=== PATIENT | male | born 1970 | race Caucasian/White ===

== ENCOUNTER 2021-07-04 11:49 | Emergency (ER) | payer BC ==
[~2021-07-04] VITALS: Ht 185.4 cm; Wt 90.9 kg
[~2021-07-04 11:49] MED LIST: ADVIL200 MG PO; ALLEGRA 180MG180 MG PO; LEXAPRO 5MG5 MG PO; LEXAPRO5 MG PO; MULTIPLE VITAMI1 CAP PO; NORCO 325 MG-51 TAB PO; PRIL40 PO; SUDAFED30 MG PO; VALIUM 5MG T5 MG/TAB PO; VALIUM5 MG PO; ZANTAC 150MG T150 MG PO; ZOLOFT 100MG100 MG PO
[2021-07-04 12:12] VITALS: TEMP 97.8
[2021-07-04 12:34] LABS: BASO # 0.1 K/mm3 (0.0-0.2); BASO % 0.5 % (0.0-2.0); EOS # 0.1 K/mm3 (0.0-0.7); EOS % 0.6 % (0.0-4.0); GRAN # 8.3 K/mm3 (1.4-6.5); GRAN % 77.3 % (42.2-75.2); HEMATOCRIT 47.8 % (42.0-52.0); LYMPH # 1.6 K/mm3 (1.2-3.4); MEAN CELL VOLUME 86 fl (80.0-100.0); MEAN CORPUSCULAR HEMOGLOBIN 31 pg (27-31); MEAN CORPUSCULAR HGB CONC 36 g/dl (33.0-37.0); MEAN PLATELET VOLUME 10.8 fl (7.4-10.4); MONO # 0.7 K/mm3 (0.1-0.6); MONO % 6.2 % (1.7-9.3); PLATELET COUNT 216 K/mm3 (130-400); RED BLOOD COUNT 5.58 M/mm3 (4.20-5.60); REDCELL DISTRIBUTION WIDTH-CV 12.9 % (11.5-14.5)
[2021-07-04 12:49] LABS: COLLECTION METHOD CLEAN CATCH
[2021-07-04 12:52] LABS: ALANINE AMINOTRANSFERASE 21 U/L (0-55); ALBUMIN 4.1 gm/dL (3.5-5.0); ALKALINE PHOSPHATASE 72 U/L (40-150); ANION GAP 11 mmol/L (7-16); AST,SGOT 19 U/L (5-34); BILIRUBIN,TOTAL 0.9 mg/dL (0.2-1.2); BLOOD UREA NITROGEN 11 mg/dL (9-21); CALCIUM 9.4 mg/dL (8.4-10.2); CARBON DIOXIDE 25 mmol/L (22-29); CHLORIDE 107 mmol/L (98-107); CREATININE, serum 0.92 mg/dL (0.72-1.25); GLUCOSE 99 mg/dL (70-99); SODIUM 143 mmol/L (136-145); TOTAL PROTEIN 7.1 gm/dL (6.2-8.1)
[2021-07-04 12:53] LABS: ALCOHOL(ethanol),MEDICAL < 10 mg/dL (0-10); SALICYLATE < 5.0 mg/dL (15.0-30.0)
[2021-07-04 13:03] LABS: MUCOUS Present (NOT PRESENT); PH 7 (5-8); SQUAMOUS EPITHELIAL None Seen /hpf (0-10); URINE APPEARANCE Clear (CLEAR/HAZY); URINE BACTERIA None Seen /hpf (NONE SEEN); URINE BILIRUBIN Negative (NEGATIVE); URINE BLOOD Negative (NEGATIVE); URINE COLOR Yellow (YELLOW); URINE GLUCOSE Negative (NEGATIVE); URINE KETONE 1+ (NEGATIVE); URINE LEUKOCYTE ESTERASE Negative (NEGATIVE); URINE NITRATE Negative (NEGATIVE); URINE PROTEIN(semi-quant) Negative (NEGATIVE); URINE RBC 0-2 /hpf (0-2); URINE UROBILINOGEN Negative (NEGATIVE)
[2021-07-04 13:12] LABS: TRICYCLIC ANTIDEPRESS URINE NEGATIVE
[2021-07-04] MEDS ORDERED: ZOLOFT 50MG50 MG PO (15:31)
[2021-07-04] MEDS ORDERED: ABILIFY5 MG PO (15:32)
[2021-07-04] MEDS ORDERED: ATARAX 10MG10 MG/TAB PO (15:32)
[2021-07-04] MEDS ORDERED: AMBIEN 10MG10 MG PO (15:32)
[2021-07-04] MEDS ORDERED: LAMICTAL 25MG T25 MG PO (15:33)
[2021-07-04] MEDS ORDERED: EUTHYROX75 MCG PO (15:33)
[2021-07-04 22:50] VITALS: BP 136/86; PULSE 78
== END 2021-07-04 22:52 ==
LOC: COL.ER 11:49
PROVIDERS: Family Medicine
DX: F41.9 Anxiety disorder, unspecified (principal); R45.851 Suicidal ideations; F32.A Depression, unspecified; Z20.822 Contact with and (suspected) exposure to COVID-19; Z79.899 Other long term (current) drug therapy